=== PATIENT | female | born 1950 | race Caucasian/White ===

== ENCOUNTER 2025-01-15 13:45 | Outpatient (CLI) | payer MEDICARE, OTHER ==
[~2025-01-15 13:45] MED LIST: CALC600T45; CHOL10002 PO; IBUP-1984 PO
== END 2025-01-15 23:59 | disposition home or self-care (01) ==
LOC: MRI02 13:45
PROVIDERS: ATTEND Anesthesiology Pain Medicine
DX: S22.070A Wedge compression fracture of T9-T10 vertebra, initial encounter for closed fracture (principal); S22.050A Wedge compression fracture of T5-T6 vertebra, initial encounter for closed fracture; M51.34 Other intervertebral disc degeneration, thoracic region; M54.50 Low back pain, unspecified; X58.XXXA Exposure to other specified factors, initial encounter; Y93.89 Activity, other specified; Y92.89 Other specified places as the place of occurrence of the external cause; Y99.8 Other external cause status
CPT/HCPCS: 72146

== ENCOUNTER 2025-01-25 11:56 | Outpatient (CLI) | payer MEDICARE, OTHER ==
[2025-01-25 14:29] LABS: ALBUMIN 3.9 G/DL (3.4-5.0); ANION GAP 6 (8-16); BLOOD UREA NITROGEN 14 MG/DL (7-18); BUN/CREATININE RATIO 23.7 (10.0-20.0); CALCIUM 8.8 MG/DL (8.5-10.1); CHLORIDE 103 MMOL/L (99-107); CREATININE 0.59 MG/DL (0.40-0.90); GLUCOSE 108 MG/DL (70-104); POTASSIUM 4.2 MMOL/L (3.5-5.1); SODIUM 137 MMOL/L (135-145); TOTAL CARBON DIOXIDE 28.2 MMOL/L (24-32); eGFR > 90 ML/MIN
[2025-01-25] MEDS ORDERED: iohexol 300mg/ml 100ml inj. ONE (14:39)
[2025-01-25] MEDS ORDERED: iohexol 300 MG/1 ML 50ml polymer ONE (14:40)
== END 2025-01-25 23:59 | disposition home or self-care (01) ==
LOC: RAD 11:56
PROVIDERS: ATTEND Anesthesiology Pain Medicine
DX: S22.050D Wedge compression fracture of T5-T6 vertebra, subsequent encounter for fracture with routine healing (principal); M54.50 Low back pain, unspecified; R22.1 Localized swelling, mass and lump, neck; M40.10 Other secondary kyphosis, site unspecified; J98.59 Other diseases of mediastinum, not elsewhere classified; M81.0 Age-related osteoporosis without current pathological fracture; S22.070D Wedge compression fracture of T9-T10 vertebra, subsequent encounter for fracture with routine healing; J04.0 Acute laryngitis; X58.XXXD Exposure to other specified factors, subsequent encounter
CPT/HCPCS: 36415; 70492; 72130; 80048; Q9967

== ENCOUNTER 2025-02-12 06:51 | Day surgery (SDC) | payer MEDICARE, OTHER ==
[~2025-02-12] VITALS: Ht 162.6 cm; Wt 121.0 kg
[2025-02-12 07:20] VITALS: BP 118/72; PULSE 84; RESP 13; TEMP 84
[2025-02-12] MEDS ORDERED: LIDOcaine 2% Viscous 15ml cup ONE (08:02)
[2025-02-12] MEDS ORDERED: propofol inj 20 ML IV ONE (08:50)
[2025-02-12 08:57] VITALS: BP 107/69; PULSE 85; RESP 20
[2025-02-12 09:07] VITALS: BP 115/87; PULSE 77; RESP 16; O2SAT 99
[2025-02-12 09:17] VITALS: BP 122/76; PULSE 80; RESP 14; O2SAT 96
[2025-02-12 09:27] VITALS: BP 125/70; PULSE 79; RESP 13; O2SAT 96
[2025-02-12 09:37] VITALS: BP 125/68; PULSE 81; RESP 13; O2SAT 96
--- NOTE | 2025-02-13 10:19 | PATHOLOGY REPORT ---
[facility] [address] [place] [address] SURGICAL PATHOLOGY REPORT CaseNumber: [id number] Surgeon:Alok Samuels N.P. CLINICAL INFORMATION CLINICAL INFORMATION: Abnormal CT of the GI tract. DIAGNOSIS DIAGNOSIS: A.STOMACH, ANTRUM; BIOPSY - INACTIVE CHRONIC GASTRITIS, MILD. - NEGATIVE FOR H. PYLORI. - NEGATIVE FOR INTESTINAL METAPLASIA. DIAGNOSIS: B.GASTROESOPHAGEAL JUNCTION; BIOPSY - INFLAMED JUNCTIONAL MUCOSA WITH REFLUX-TYPE CHANGES. - NEGATIVE FOR INTESTINAL METAPLASIA AND DYSPLASIA. MICROSCOPIC DESCRIPTION A. STOMACH, ANTRUM MICROSCOPIC DESCRIPTION: A single H&E slide with multiple levels of gastric mucosa is reviewed. The gastric biopsy shows mild chronic gastritis. The lamina propria is expanded by lymphocytes and plasma cells; no neutrophilic (active) inflammation is identified. There is no evidence of dysplasia or keon plasia. No H. pylori organisms are identified on routine staining. B. GASTROESOPHAGEAL JUNCTION MICROSCOPIC DESCRIPTION: 1 H&E stained slide is reviewed. It shows fragments of gastroesophageal alejo ctional mucosa with patchy mucosal chronic inflammation and crush artifact. The squamous mucosa show s mild basal cell hyperplasia and rare intraepithelial lymphocytes with spongiosis, consistent with r eflux related changes. I do not see intraepithelial acute inflammation. There is no evidence of dys plasia. GROSS DESCRIPTION A. STOMACH, ANTRUM GROSS DESCRIPTION: Received in a container of formalin labeled with the patient's name, number, and " gastric antrum BX" is a 0.7 x 0.3 x 0.2 cm piece of pierre tissue. The specimen is entirely submitted as A1. The time at which the specimen was removed was 0845. The time at which the specimen was placed i n formalin was 0847. B. GASTROESOPHAGEAL JUNCTION GROSS DESCRIPTION: Received in a container of formalin labeled with the patient's name, number, and " GE junction BX" is a 0.6 x 0.2 x 0.2 cm piece of pierre tissue. The specimen is entirely submitted as B1 . The time at which the specimen was removed was 0848. The time at which the specimen was placed in f ormalin was 0849. Electronically signed by: Allen Starkey, 02/13/2025 9:46:00 AM
== END 2025-02-12 09:37 | disposition home or self-care (01) ==
LOC: OR 06:51
PROVIDERS: ATTEND Internal Medicine Gastroenterology
DX: R93.3 Abnormal findings on diagnostic imaging of other parts of digestive tract (principal); K29.50 Unspecified chronic gastritis without bleeding; K21.00 Gastro-esophageal reflux disease with esophagitis, without bleeding; K31.89 Other diseases of stomach and duodenum; Z98.890 Other specified postprocedural states
CPT/HCPCS: 43239; A4620; J2704; J7030; Z7512; 88305

== ENCOUNTER 2025-10-06 12:21 | Emergency (ER) | payer MEDICARE, OTHER ==
[~2025-10-06] VITALS: Ht 162.6 cm; Wt 49.7 kg
--- NOTE | 2025-10-06 12:37 | Physician Documentation ---
History of Present Illness ~ Stated Complaint: BACK PAIN Time Seen by MD: 13:43 Primary Medical Doctor: ASHER Source: patient Mode of Arrival: Wheelchair Exam Limitations: no limitations HPI 75-year-old female with chronic back pain states that for the past few days she has been experiencing worsening back pain. Patient takes opiates and has pain management but has not helped. Patient denies any falls or triggering events to cause increased back pain Medication Reconciliation Allergies: Coded Allergies: No Known Allergies (Unverified , 10/06/25) Scheduled Calcium Carbonate (Calcium), DAILY, (Reported) Cholecalciferol (Vitamin D3) (Vitamin D3), 1 TABLET PO DAILY, (Reported) Scheduled PRN Ibuprofen* (Motrin*), 200 MG PO Q6H PRN for P, (Reported) Past Medical History Past Medical History: Chronic Pain, Chronic Back Pain Lives with: Spouse Lives In: Home Occupation: retired Review of Systems All Other Systems at this time: Reviewed and Negative Musculoskeletal: Reports: see HPI Physical Exam Physical Exam Physical Exam General: Alert, no apparent distress. HEENT: moist mucous membranes. Neck: Full range of motion. Respiratory: No respiratory distress speaking in full sentences Chest: No accessory muscle use. Cardiovascular: Appears well perfused Neurologic: Oriented x4. Psychiatric: Normal mood and affect. Skin: Normal color, warm and dry. No edema, no ecchymosis. Progress Results/Orders Results/Orders Completed Orders - TRICIA HUTSON [employer] Nitrofur Todd/Nitrofuran Macr (Macrobid (10/06/25 13:50) Oxycodone/Acetaminophen Tablet (Percocet (10/06/25 13:50) Ketorolac Trometh 30mg/Ml Vial (Toradol (10/06/25 13:50) Ketorolac Trometh 30mg/Ml Vial (Toradol (10/06/25 13:55) Vital Signs 10/06/25 12:34 Temp 97.2 Pulse 104 Resp 16 B/P (MAP) 156/81 Pulse Ox 98 O2 Flow Rate 0 Laboratory Tests Test 10/06/25 12:38 Urine Specimen Description Cln catch midstream Urine Color Yellow Urine Clarity Cloudy Urine pH 5.5 Urine Specific [place] 1.025 Urine Protein Trace Urine Glucose (UA) Negative Urine Ketones Trace H Urine Occult Blood Negative Urine Nitrite Negative Urine Bilirubin Moderate Urine Urobilinogen 1.0 Urine Leukocyte Esterase Moderate H Urine RBC 0-2 Urine WBC 5-10 H Urine Squamous Epithelial Cells Few Urine Calcium Oxalate Crystals 1+ Urine Amorphous Urates 1+ Urine Bacteria Few Urine Mucus Few Urine Culture Indicated Indicated Volume Urine Centrifuged 1 ml Urine Comment Low volume Medical Decision Making Additional information obtaine: old records Findings Acute exacerbation of chronic back pain without any triggering events falls or otherwise. Did do UA which showed an infection. We will treat UTI given pain medication here but will be discharged to follow home pain med regimen. Differential Dx:Considerations: Other Departure Time of Disposition: 14:11 Disposition: 01 HOME / SELF CARE / HOMELESS Impression: Primary Impression: Chronic back pain Additional Impression: UTI (urinary tract infection) Condition: Stable Discharge Instructions: Chronic Back Pain, Urinary Tract Infection, Adult, [id number] Additional Instructions: Your normal pain management and pain medication protocol at home follow up with primary care this week. Take medications for UTI as prescribed as this could be causing more significant back pain Referrals: NO PRIMARY CARE PROVIDER (PCP) Prescriptions Nitrofurantoin Monohyd/M-Cryst (Macrobid 100 mg Capsule) 100 Mg Capsule 1 CAP PO Q12H for 7 Days, #14 CAP 0 Refills Prov: TRICIA HUTSON NP 10/06/25 Education Educated: Patient Educated regarding: diagnosis, treatment, need for follow up Signature Scribe Signature: no Scribe Attestation: The note accurately reflects work and decisions made by me.Tricia Hutson - AZIZA 10/06/25 14:13 TRICIA HUTSON NP Oct 06, 2025 12:37
[2025-10-06 13:00] LABS: LEUKOCYTE ESTERASE ,URINE MODERATE (Neg); NITRITES, URINE NEGATIVE (Neg); OCCULT BLOOD,URINE NEGATIVE (Neg)
[2025-10-06 13:06] LABS: UA COLLECTION TYPE CLN CATCH MIDSTREAM
[2025-10-06 13:11] LABS: AMORPHOUS URATES 1+; CAL OXALATE CRYSTALS 1+ /HPF (NEGATIVE); MUCUS STRANDS FEW /LPF (Neg); SQUAMOUS EPITHELIAL CELL,UR FEW /LPF (FEW)
[2025-10-06] MEDS ORDERED: ketorolac trometh 30MG/ML vial 30 MG/ML VIAL IV ONE (13:50)
[2025-10-06] MEDS: nitrofuran monohydrate/nitrofuran macrocrysal 100 MG (MacroBID) capsule PO ONE (14:02)
[2025-10-06] MEDS: ketorolac trometh 30MG/ML vial 30 MG/ML VIAL IM ONE (14:06)
[2025-10-06] MEDS ORDERED: NITR100C6 PO (14:13)
[2025-10-06 14:27] VITALS: BP 134/79; PULSE 89; RESP 18; TEMP 97.2; O2SAT 96
== END 2025-10-06 14:17 | disposition home or self-care (01) ==
LOC: ER 12:21
DX: N39.0 Urinary tract infection, site not specified (principal); G89.29 Other chronic pain; M54.9 Dorsalgia, unspecified; Z79.899 Other long term (current) drug therapy
CPT/HCPCS: 81001; 87088; 96372; 99283; J1885